=== PATIENT | male | born 1935 | race African-American/Black ===

== ENCOUNTER 2021-12-07 12:03 | Inpatient (IN) | payer MEDICARE, OTHER ==
[~2021-12-07] VITALS: Ht 167.6 cm; Wt 56.7 kg
--- NOTE | 2021-12-07 12:22 | NUR ---
PT SOULEYMANE MATUTE FROM [facility], PER EMS REPORT, BEEN HAVING DIARRHEA FOR MONTHS AND HAVING CONCERN WELL WITH POSSIBLE GI BLEED. PT IS CONFUSED RANGER AIDE. STABLE VITALS. NO ACTIVE DIARRHEA NOTED RANGER AIDE. AWAITING MD JENSEN.
--- NOTE | 2021-12-07 12:48 | NUR ---
DR MURO AT BEDSIDE FOR EVAL.
--- NOTE | 2021-12-07 12:50 | NUR ---
PT TO RADIOLOGY FOR ABDOMINAL CT SCAN VIA [facility].
--- NOTE | 2021-12-07 12:54 | NUR ---
SWAB FOR COVID19 SENT TO LAB
[2021-12-07] MEDS ORDERED: MEMA28CA5 PO (13:23)
[2021-12-07] MEDS ORDERED: CARV6.252 PO (13:23)
[2021-12-07] MEDS ORDERED: PANT40TA2 PO (13:23)
[2021-12-07] MEDS ORDERED: ASPI-1169 PO (13:23)
[2021-12-07] MEDS ORDERED: LISI40TA13 PO (13:23)
[2021-12-07] MEDS ORDERED: TAMS-12 PO (13:23)
[2021-12-07] MEDS ORDERED: METF-440 PO (13:23)
[2021-12-07] MEDS ORDERED: ATOR10TA PO (13:23)
[2021-12-07] MEDS ORDERED: AMLO-213 PO (13:23)
[2021-12-07] MEDS ORDERED: CHOL100043 PO (13:23)
[2021-12-07] MEDS ORDERED: DIPH1TAB PO (13:23)
[2021-12-07] MEDS ORDERED: FERR325T23 PO (13:23)
[2021-12-07] MEDS ORDERED: ASCO-340 PO (13:23)
[2021-12-07] MEDS ORDERED: HYDR-4076 PO (13:23)
[2021-12-07] MEDS ORDERED: DONE10TA44 PO (13:23)
[2021-12-07] MEDS ORDERED: LACT10SO3 PO (13:23)
[2021-12-07 13:45] LABS: BASOPHILS % (AUTO) 0.3 % (0.0-2.0); EOSINOPHILS % (AUTO) 2.7 % (0.0-6.0); HEMATOCRIT 28 % (39-51); HEMOGLOBIN 8.5 g/dL (13.5-17.5); LYMPHOCYTES # (AUTO) 1.6 K/uL (0.8-4.8); LYMPHOCYTES % (AUTO) 17.5 % (20.0-44.0); MEAN CORPUSCULAR HGB CONC 31 g/dl (31.0-36.0); MEAN CORPUSCULAR VOLUME 74 fL (80-96); MONOCYTES # (AUTO) 0.6 K/uL (0.1-1.30); MONOCYTES % (AUTO) 6.7 % (2.0-12.0); NEUTROPHILS # (AUTO) 6.7 K/uL (1.8-8.9); NEUTROPHILS % (AUTO) 72.8 % (43.0-81.0); PLATELET COUNT (AUTO) 267 K/uL (150-450); RED BLOOD CELL COUNT(AUTO) 3.72 MIL/uL (4.5-6.0); WHITE BLOOD COUNT (AUTO) 9.2 K/uL (4.3-11.0)
[2021-12-07 13:55] LABS: ALBUMIN 2.6 g/dL (3.4-5.0); BILIRUBIN,TOTAL 0.2 mg/dL (0.2-1.0); CALCIUM, SERUM 9.3 mg/dL (8.5-10.1); CREATININE 0.8 mg/dL (0.6-1.3); POTASSIUM 4.1 mmol/L (3.5-5.1); TOTAL PROTEIN, SERUM 7.1 g/dL (6.4-8.2)
[2021-12-07 14:11] LABS: BILIRUBIN,DIRECT 0.1 mg/dL (0.0-0.2)
--- NOTE | 2021-12-07 18:23 | NUR ---
BED GIVEN 120-1
--- NOTE | 2021-12-07 18:27 | NUR ---
REPORT GIVEN TO NURSE ALVAREZ FOR JOHN
[2021-12-07] MEDS ORDERED: ACETAMINOPHEN 325 MG TABLET PO PRN (19:00)
[2021-12-07] MEDS ORDERED: ONDANSETRON HCL/PF 4 MG/2 ML VIAL IVP PRN (19:00)
[2021-12-07] MEDS ORDERED: DEXTROSE 50%-WATER 50 ML DISP.SYRIN IV PRN (19:30)
--- NOTE | 2021-12-07 19:30 | NUR ---
RN NOTE RECEIVED PATIENT IN BED, CONFUSED, IN NO ACUTE DISTRESS, BREATHING EVEN AND UNLABORED, SATURATION AT 98% ON ROOM AIR, HR IS 90. IV LINE AT RFA 20G PATENT AND FLUSHING WELL, NO S/S OF INFECTION OR INFILTRATION, STARTED IV FLUID OF NS AT 75 ML/HR. COMPREHENSIVE ASSESSMENT DONE, NOTED UNSTAGEABLE SACRAL ULCER, AND WOUND AT L HEEL AND R FOOT. PATIENT BED ALARM IS ON. HEAD OF BED ELEVATED. BED IS LOCKED, IN LOWEST POSITION AND SIDE RAILS UP. CALL LIGHT WITHIN REACH OF THE PATIENT. WILL CONTINUE TO MONITOR AND REASSESS FOR ANY CHANGES.
[2021-12-07 20:00] VITALS: BP 142/81
[2021-12-07] MEDS: IV NS 0.9% 1,000 ML IV PRN (20:40)
[2021-12-07] MEDS: PANTOPRAZOLE 40 MG VIAL IV SCH (21:08)
[2021-12-07] MEDS: CIPROFLOXACIN IV RTU 400 MG in PREMIX 1 EA IV SCH (21:43)
[2021-12-07] MEDS: METRONIDAZOLE 500MG/ NS 100ML 500 MG in PREMIX 1 EA IV SCH (21:56)
[2021-12-08] MEDS: BLOOD SUGAR DIAGNOSTIC 1 EACH STRIP IN SCH ×5 (00:27→23:52)
[2021-12-08] MEDS: METRONIDAZOLE 500MG/ NS 100ML 500 MG in PREMIX 1 EA IV SCH ×3 (05:33→20:30)
[2021-12-08 06:00] VITALS: BP 157/72
[2021-12-08 07:24] LABS: BASOPHILS % (AUTO) 0.3 % (0.0-2.0); EOSINOPHILS % (AUTO) 1.8 % (0.0-6.0); HEMATOCRIT 27 % (39-51); HEMOGLOBIN 8.3 g/dL (13.5-17.5); LYMPHOCYTES # (AUTO) 1.5 K/uL (0.8-4.8); LYMPHOCYTES % (AUTO) 16.3 % (20.0-44.0); MEAN CORPUSCULAR HGB CONC 31 g/dl (31.0-36.0); MEAN CORPUSCULAR VOLUME 74 fL (80-96); MONOCYTES # (AUTO) 0.8 K/uL (0.1-1.30); MONOCYTES % (AUTO) 9.4 % (2.0-12.0); NEUTROPHILS # (AUTO) 6.5 K/uL (1.8-8.9); NEUTROPHILS % (AUTO) 72.2 % (43.0-81.0); PLATELET COUNT (AUTO) 234 K/uL (150-450); RED BLOOD CELL COUNT(AUTO) 3.58 MIL/uL (4.5-6.0)
[2021-12-08 07:29] LABS: CALCIUM, SERUM 8.6 mg/dL (8.5-10.1); CARBON DIOXIDE 29 mmol/L (21-32); CHLORIDE 103 mmol/L (98-107); CREATININE 0.8 mg/dL (0.6-1.3); GLUCOSE 106 mg/dL (74-106); MAGNESIUM 1.5 mg/dL (1.8-2.4); PHOSPHORUS 3.1 mg/dL (2.5-4.9); POTASSIUM 3.6 mmol/L (3.5-5.1); SODIUM SERUM 137 mmol/L (136-145); UREA NITROGEN, BLOOD 16 mg/dL (7-18)
--- NOTE | 2021-12-08 07:30 | NUR ---
RN OPENING NOTE PATIENT IS IN BED, ASLEEP BUT EASILY AROUSABLE. ALERT ORIENTED X 1. ON ROOM AIR , BREATHING UNLABORED AND NOT IN ANY FORM OF DISTRESS. ON NPO. RIGHT FOREARM IV INTACT AND INFUSING WITH NS AT 75 ML/HR. RIGHT HAND IV LOCK INTACT AND PATENT. BED IS LOCKED IN LOWEST POSITION, 3 SIDE RAILS UP, CALL LIGHT WITHIN REACH. WILL CONTINUE TO MONITOR.
[2021-12-08 07:47] LABS: IRON, SERUM 15 ug/dl (50-175); TOTAL IRON BINDING CAPACITY 133 ug/dl (250-450)
[2021-12-08 07:50] LABS: CHOLESTEROL 116 mg/dL (<200); HDL CHOLESTEROL 39 mg/dL (40-60); LDL 65 mg/dL (0-99); TRIGLYCERIDES 87 mg/dL (30-150)
[2021-12-08 08:00] VITALS: BP 160/65
[2021-12-08] MEDS: PANTOPRAZOLE 40 MG VIAL IV SCH (09:55)
[2021-12-08] MEDS: CIPROFLOXACIN IV RTU 400 MG in PREMIX 1 EA IV SCH ×2 (09:55→20:30)
[2021-12-08] MEDS ORDERED: PANTOPRAZOLE 40 MG TABLET.DR PO SCH (12:00)
[2021-12-08] MEDS: hydrALAZINE HCL 25 MG TABLET PO SCH ×2 (12:08→17:34)
[2021-12-08] MEDS: Magnesium 1GM/D5W 100ML PREMIX 100 ML IV SCH ×2 (12:14→14:26)
[2021-12-08] MEDS: CHOLECALCIFEROL (VITAMIN D 3) 400 UNIT TABLET PO SCH (12:14)
[2021-12-08] MEDS: AMLODIPINE BESYLATE 10 MG TABLET PO SCH (12:15)
[2021-12-08] MEDS: ATORVASTATIN 10 MG TABLET PO SCH (12:15)
[2021-12-08] MEDS: TAMSULOSIN 0.4 MG CAP.SR.24H PO SCH (12:15)
[2021-12-08] MEDS: CARVEDILOL 6.25 MG TABLET PO SCH ×2 (12:15→17:33)
[2021-12-08] MEDS: ASCORBIC ACID 500 MG TABLET PO SCH (12:15)
[2021-12-08] MEDS: ASPIRIN 81 MG TAB.CHEW PO SCH (12:16)
[2021-12-08] MEDS: DONEPEZIL 5 MG TABLET PO SCH (12:16)
[2021-12-08] MEDS: LISINOPRIL (20MG) 20 MG TABLET PO SCH (12:16)
[2021-12-08] MEDS: MEMANTINE HCL 5 MG TABLET PO SCH ×2 (12:16→17:33)
[2021-12-08] MEDS: IV NS 0.9% 1,000 ML IV PRN (12:21)
[2021-12-08 16:00] VITALS: BP 149/64
[2021-12-08] MEDS: SOD FERRIC GLUC 125 MG in IV NS 0.9% 100 ML IV SCH (16:05)
--- NOTE | 2021-12-08 19:00 | NUR ---
RN NOTE RECEIVED PATIENT IN BED, ON SEMI HAILE'S, CONFUSED, IN NO ACUTE DISTRESS, BREATHING EVEN AND UNLABORED, SATURATION AT 100 ON 2L VIA NC, HR IS 76. IV LINE AT RFA 20G AND L HAND 20G PATENT AND FLUSHING WELL, NO S/S OF INFECTION OR INFILTRATION, NS INFUSING AT 75 ML/HR. SAFETY MEASURES IN PLACE. PATIENT BED ALARM IS ON. HEAD OF BED ELEVATED. BED IS LOCKED, IN LOWEST POSITION AND SIDE RAILS UP. CALL LIGHT WITHIN REACH OF THE PATIENT. WILL CONTINUE TO MONITOR AND REASSESS FOR ANY CHANGES.
--- NOTE | 2021-12-08 19:00 | NUR ---
RN CLOSING NOTE PATIENT REMAINED STABLE THROUGHOUT SHIFT. BREATHING UNLABORED AND NOT IN ANY FORM OF DISTRESS. ABLE TO TOLERATE CLEAR LIQUID DIET. IV LINE INTACT AND PATENT. NOW WITH CONDOM CATHETER. ALL NEEDS ATTENDED. ALL HOSPITAL SAFETY PRECAUTIONS IN PLACE. WILL ENDORSE TO PROCESS ENGINEERING MANAGER NURSE.
[2021-12-08 20:00] VITALS: BP 134/63
--- NOTE | 2021-12-08 20:54 | NUR ---
RN NOTE TELEPHONE CALL TO [facility] AT [phone] TO VERIFY CODE STATUS FACE SHEET FROM FACILITY SHOWS DNR. SPOKE WITH CAREGIVER AND WAS TOLD TO CALL [facility] STRAIGHTENER [facility] AT [phone]. TELEPHONE CALL TO [phone], SPOKE WITH [facility] STATED PT DOES NOT HAVE A SIGNED POLST BUT HAS AN ADVANCED DIRECTIVE, SHE SAID SHE WILL FAX IT OVER WHEN SHE GOES TO THE FACILITY IN AM, OR BRING IT WHEN SHE IS ABLE TO COME TO THE HOSPITAL. PROVIDED WITH FAX NUMBER. TOLD HER PATIENT WILL BE TRANSFERRED TO ROOM 327-1. .
--- NOTE | 2021-12-08 22:25 | NUR ---
RN NOTE PT TRANSFERRED TO 327-1 VIA BLS PROTOCOL, VS STABLE. REPORT GIVEN TO MATHEW AUGUSTIN FOR JOHN
[2021-12-08] MEDS ORDERED: DOXYCYCLINE 100 MG VIAL ONE (22:39)
--- NOTE | 2021-12-08 23:23 | NUR ---
MS RN NOTE PATIENT TRANSFERRED IN UNIT AT AROUND 2225, ACCOMPANIED BY 2 JONATHON RN'S. NO S/S OF APPARENT DISTRESS IN 4LPM OF O2 VIA NC. NOT EXHIBITING VIA FLACC. PATIENT NON-VERBAL BUT OPENS EYE. IV CIPRO AND IV FLAGYL RUNNING STILL AT THIS TIME. ID BAND WITH PATIENT. BELONGINGS CHECKED AND INVENTORIED. HAS 2 IV ACCESS ONE ON R.FA #20G AND ONE ON L.HAND #20G. CONDOM CATH DRAINING CLEAR YELLOW URINE. MULTIPLE WOUNDS NOTED. SAFETY IN PLACE. WILL CONTINUE WITH PATIENT CARE PLAN.
[2021-12-08] MEDS: DOXYCYCLINE 100 MG in IV D5W 100 ML IV SCH (23:51)
[2021-12-08] MEDS: INSULIN REGULAR, HUMAN 100 UNIT/ML 3 ML VIAL SQ PRN (23:52)
[2021-12-09] MEDS: METRONIDAZOLE 500MG/ NS 100ML 500 MG in PREMIX 1 EA IV SCH (05:00)
[2021-12-09] MEDS: BLOOD SUGAR DIAGNOSTIC 1 EACH STRIP IN SCH ×3 (06:00→17:37)
[2021-12-09 08:00] VITALS: BP 141/67
--- NOTE | 2021-12-09 08:10 | NUR ---
MS RN RECEIVED ON BED, AWAKE, ORIENTED X1, ROOM AIR,NOT IN ANY FORM OF DISTRESS, RESPIRATIONS EVEN AND UNLABORED,NO SOB NOTED, WILL MONITOR PATIENT.
--- NOTE | 2021-12-09 09:30 | NUR ---
MS RN ON CLEAR LIQUID DIET, TOLERATED WELL W/ MEDS,ALL NEEDS ATTENDED.
[2021-12-09] MEDS: CHOLECALCIFEROL (VITAMIN D 3) 400 UNIT TABLET PO SCH (10:58)
[2021-12-09] MEDS: ASPIRIN 81 MG TAB.CHEW PO SCH (10:58)
[2021-12-09] MEDS: DONEPEZIL 5 MG TABLET PO SCH (10:58)
[2021-12-09] MEDS: ATORVASTATIN 10 MG TABLET PO SCH (10:58)
[2021-12-09] MEDS: TAMSULOSIN 0.4 MG CAP.SR.24H PO SCH (10:59)
[2021-12-09] MEDS: MEMANTINE HCL 5 MG TABLET PO SCH ×2 (10:59→17:09)
[2021-12-09] MEDS: LISINOPRIL (20MG) 20 MG TABLET PO SCH (10:59)
[2021-12-09] MEDS: CARVEDILOL 6.25 MG TABLET PO SCH ×2 (11:00→17:10)
[2021-12-09] MEDS: AMLODIPINE BESYLATE 10 MG TABLET PO SCH (11:00)
--- NOTE | 2021-12-09 11:00 | NUR ---
MS AUGUSTIN WAS SEEN BY MD Rose/ ORDERS MADE AND CARRIED OUT.
[2021-12-09] MEDS: hydrALAZINE HCL 25 MG TABLET PO SCH ×3 (11:01→17:09)
[2021-12-09] MEDS: ASCORBIC ACID 500 MG TABLET PO SCH (11:01)
[2021-12-09] MEDS: PANTOPRAZOLE 40 MG VIAL IV SCH (11:11)
[2021-12-09] MEDS: DOXYCYCLINE 100 MG in IV D5W 100 ML IV SCH ×2 (11:11→21:14)
[2021-12-09] MEDS ORDERED: METR500T PO (11:14)
[2021-12-09] MEDS ORDERED: CIPR-262 PO (11:14)
[2021-12-09] MEDS ORDERED: SOD62.5V IV (11:14)
[2021-12-09 11:24] LABS: BASOPHILS % (AUTO) 0.5 % (0.0-2.0); EOSINOPHILS % (AUTO) 1.8 % (0.0-6.0); HEMATOCRIT 25 % (39-51); HEMOGLOBIN 7.8 g/dL (13.5-17.5); LYMPHOCYTES # (AUTO) 1.4 K/uL (0.8-4.8); LYMPHOCYTES % (AUTO) 16.6 % (20.0-44.0); MEAN CORPUSCULAR HGB CONC 32 g/dl (31.0-36.0); MEAN CORPUSCULAR VOLUME 73 fL (80-96); MONOCYTES # (AUTO) 0.9 K/uL (0.1-1.30); MONOCYTES % (AUTO) 10.9 % (2.0-12.0); NEUTROPHILS # (AUTO) 5.9 K/uL (1.8-8.9); NEUTROPHILS % (AUTO) 70.2 % (43.0-81.0); PLATELET COUNT (AUTO) 237 K/uL (150-450); RED BLOOD CELL COUNT(AUTO) 3.37 MIL/uL (4.5-6.0); WHITE BLOOD COUNT (AUTO) 8.4 K/uL (4.3-11.0)
[2021-12-09 11:58] LABS: CALCIUM, SERUM 8.3 mg/dL (8.5-10.1); CREATININE 0.7 mg/dL (0.6-1.3); POTASSIUM 3.2 mmol/L (3.5-5.1)
[2021-12-09] MEDS: INSULIN REGULAR, HUMAN 100 UNIT/ML 3 ML VIAL SQ PRN (12:38)
[2021-12-09] MEDS: METRONIDAZOLE 500 MG TABLET PO SCH ×2 (14:05→21:12)
[2021-12-09] MEDS: SOD FERRIC GLUC 125 MG in IV NS 0.9% 100 ML IV SCH (14:21)
[2021-12-09] MEDS: IV NS 0.9% 1,000 ML IV PRN (14:30)
[2021-12-09] MEDS: POTASSIUM CHLORIDE 20 MEQ TAB.PRT.SR PO SCH ×2 (15:47→16:42)
--- NOTE | 2021-12-09 17:00 | NUR ---
MS RN ON BED,NO DISTRESS NOTED.
--- NOTE | 2021-12-09 17:49 | NUR ---
MS AUGUSTIN BS- 121, NO COVERAGE PER PROTOCOL.
--- NOTE | 2021-12-09 18:31 | NUR ---
MS RN ON BED, NO DISTRESS NOTED. WILL ENDORSE TO SEED PRODUCTION FIELD SUPERVISOR FOR JOHN.
--- NOTE | 2021-12-09 19:30 | NUR ---
MS/RN OPENING NOTE RECEIVED PATIENT RESTING IN BED. ALERT AND ORIENTED TO NAME. DENIES PAIN AT THIS TIME. CONTINUES ON O2 2L VIA NC WITH NO S/SX OF RESPIRATORY DISTRESS NOTED. IV ACCESS TO RIGHT FOREARM #20G AND LEFT HAND #20G BOTH INTACT AND PATENT. CONTINUES ON IVF NS @ 75ML/HR. CONTINUES ON IV AND PO ABX. CONTINUES ON FULL LIQUID DIET WITH NO S/SX OF NAUSEA OR VOMITING NOTED. CALL LIGHT WITHIN REACH. ASPIRATION, FALL AND SAFETY PRECAUTIONS MAINTAINED. ALL NEEDS ATTENDED TO AT THIS TIME.
[2021-12-09 20:00] VITALS: BP 135/53
[2021-12-09] MEDS: CIPROFLOXACIN HCL 250 MG TABLET PO SCH (21:12)
[2021-12-10] MEDS: BLOOD SUGAR DIAGNOSTIC 1 EACH STRIP IN SCH ×3 (00:28→12:14)
[2021-12-10] MEDS: METRONIDAZOLE 500 MG TABLET PO SCH ×2 (05:45→14:03)
--- NOTE | 2021-12-10 06:20 | NUR ---
MS/RN CLOSING NOTE PATIENT CURRENTLY RESTING IN BED. AWAKE, ALERT AND ORIENTED TO NAME. DENIES PAIN AT THIS TIME. CONTINUES ON O2 2L VIA NC WITH NO S/SX OF RESPIRATORY DISTRESS NOTED. IV ACCESS TO RIGHT FOREARM #20G AND LEFT HAND #20G BOTH INTACT AND PATENT. CONTINUES ON IVF NS @ 75ML/HR. CONTINUES ON IV AND PO ABX. CONTINUES ON FULL LIQUID DIET WITH NO S/SX OF NAUSEA OR VOMITING NOTED. CONTINUES WITH CONDOM CATH DRAINING 1,000CC OF YELLOW URINE THIS SHIFT. CALL LIGHT WITHIN REACH. ASPIRATION, FALL AND SAFETY PRECAUTIONS MAINTAINED. WILL ENDORSE PLAN OF CARE TO ONCOMING SHIFT RN.
[2021-12-10 07:07] LABS: CALCIUM, SERUM 8.2 mg/dL (8.5-10.1); CREATININE 0.6 mg/dL (0.6-1.3); POTASSIUM 3.5 mmol/L (3.5-5.1)
[2021-12-10] MEDS: PANTOPRAZOLE 40 MG TABLET.DR PO SCH ×2 (08:01→09:13)
--- NOTE | 2021-12-10 08:51 | NUR ---
SS consult requested for patient is from [facility] with Stage 4 pressure Sore. SW will follow up at a later time.
[2021-12-10] MEDS ORDERED: DAKINS QUARTER STRENGTH (0.125%) 480 ML BOTTLE TOP SCH (09:00)
[2021-12-10] MEDS ORDERED: Z GUARD REMEDY 4 OZ OINT TP SCH (09:00)
[2021-12-10] MEDS ORDERED: FERROUS SULFATE (325 MG) 325 MG/TAB TABLET PO SCH (09:00)
[2021-12-10] MEDS ORDERED: Z GUARD REMEDY 4 OZ OINT TP PRN (09:00)
[2021-12-10] MEDS: TAMSULOSIN 0.4 MG CAP.SR.24H PO SCH (09:12)
[2021-12-10] MEDS: DOXYCYCLINE 100 MG in IV D5W 100 ML IV SCH (09:12)
[2021-12-10] MEDS: DONEPEZIL 5 MG TABLET PO SCH (09:12)
[2021-12-10] MEDS: MEMANTINE HCL 5 MG TABLET PO SCH (09:13)
[2021-12-10] MEDS: CARVEDILOL 6.25 MG TABLET PO SCH (09:13)
[2021-12-10] MEDS: CHOLECALCIFEROL (VITAMIN D 3) 400 UNIT TABLET PO SCH (09:14)
[2021-12-10] MEDS: ASPIRIN 81 MG TAB.CHEW PO SCH (09:14)
[2021-12-10] MEDS: ATORVASTATIN 10 MG TABLET PO SCH (09:14)
[2021-12-10] MEDS: ASCORBIC ACID 500 MG TABLET PO SCH (09:14)
[2021-12-10] MEDS: AMLODIPINE BESYLATE 10 MG TABLET PO SCH (09:14)
[2021-12-10] MEDS: hydrALAZINE HCL 25 MG TABLET PO SCH ×2 (09:15→13:00)
[2021-12-10] MEDS: LISINOPRIL (20MG) 20 MG TABLET PO SCH (09:15)
[2021-12-10] MEDS: CIPROFLOXACIN HCL 250 MG TABLET PO SCH (09:28)
[2021-12-10 09:48] VITALS: BP 126/68
--- NOTE | 2021-12-10 09:53 | NUR ---
MS RN, Opening note Pt is awake, alert in bed. On NC 2L. IV Infusing, morning meds given. Pt complains of pain on sacrum when moved. Pillows under Pt to offset pressure. Wound consult came and assessed, staged sacral wound as a stage 4. Open wound on left ankle. Wound care plan created. student services coordinator called and notified.
[2021-12-10] MEDS: INSULIN REGULAR, HUMAN 100 UNIT/ML 3 ML VIAL SQ PRN (12:20)
[2021-12-10] MEDS: SOD FERRIC GLUC 125 MG in IV NS 0.9% 100 ML IV SCH (12:38)
[2021-12-10 13:00] VITALS: BP 110/47
--- NOTE | 2021-12-10 13:00 | NUR ---
Pt awake, alert in bed. Sacral wound cleaned and redressed. No pain reported at this time.
--- NOTE | 2021-12-10 14:53 | NUR ---
MS RN, CLOSING NOTE PT AWAKE AND ALERT BEING DISCHARGED TO [facility], BEING TRANSPORTED BY AMBULANCE. IV DISCONNECTED. DISCHARGE TEACHING AND DOCUMENTS GIVEN TO TRANSPORT. MEDICATION PRESCRIPTION GIVEN TO TRANSPORT. REPORT GIVEN TO TRANSPORT. PT TRANSFERRED.
--- NOTE | 2021-12-10 15:05 | NUR ---
Bar Tender consult requested for pt. from [facility] with stage 4 pressure sore. Upon SS consult, pt. is alert and oriented x1. Pt. was not able to be interviewed at this time. personal financial planner consulted with GERALD Dodson regarding fredman report. personal financial planner will follow up as needed.
== END 2021-12-10 15:00 | DRG 391 ==
LOC: ER 12:05 → TELE1 20:22 → MEDSG1 22:25 → MED 12-08 22:21
PROVIDERS: ADMIT Nurse Practitioner Acute Care; ATTEND Nurse Practitioner Acute Care
DX: A09 Infectious gastroenteritis and colitis, unspecified (principal); L89.154 Pressure ulcer of sacral region, stage 4; N17.9 Acute kidney failure, unspecified; E44.0 Moderate protein-calorie malnutrition; K56.7 Ileus, unspecified; E86.0 Dehydration; F03.90 Unspecified dementia, unspecified severity, without behavioral disturbance, psychotic disturbance, mood disturbance, and anxiety; K21.9 Gastro-esophageal reflux disease without esophagitis; I25.10 Atherosclerotic heart disease of native coronary artery without angina pectoris; Z20.822 Contact with and (suspected) exposure to COVID-19; I10 Essential (primary) hypertension; E11.9 Type 2 diabetes mellitus without complications; Z88.0 Allergy status to penicillin; Z79.84 Long term (current) use of oral hypoglycemic drugs; Z79.82 Long term (current) use of aspirin; Z79.899 Other long term (current) drug therapy; D50.9 Iron deficiency anemia, unspecified; E88.09 Other disorders of plasma-protein metabolism, not elsewhere classified; L89.626 Pressure-induced deep tissue damage of left heel; L89.616 Pressure-induced deep tissue damage of right heel; L89.526 Pressure-induced deep tissue damage of left ankle
CPT/HCPCS: 36415; 80048-TC; 80061-TC; 80076-TC; 82728-TC; 82962-TC; 83540-TC; 83690-TC; 83735-TC; 84100-TC; 85025-TC; 85730-TC; 87081-TC; A4216; A4349; A6253; A6403; C9113; C9803; G0378; J0744; J1815; J2916; J3475; J3490; J7030; J7040; J7050; J7060

== ENCOUNTER 2022-01-03 17:03 | Inpatient (IN) | payer MEDICARE, OTHER ==
[~2022-01-03] VITALS: Ht 167.6 cm; Wt 53.5 kg
[~2022-01-03 17:03] MED LIST: AMLO-213 PO; ASCO-340 PO; ASPI-1169 PO; ATOR10TA PO; CARV6.252 PO; CHOL100043 PO; CIPR-262 PO; DIPH1TAB PO; DONE10TA44 PO; FERR325T23 PO; HYDR-4076 PO; LACT10SO3 PO; LISI40TA13 PO; MEMA28CA5 PO; METF-440 PO; METR500T PO; PANT40TA2 PO; SOD62.5V IV; TAMS-12 PO
--- NOTE | 2022-01-03 17:16 | NUR ---
[id number] from board and care, sob while eating, 74% on room air, 94% on NRB. PLACED ON BED, NOT RESPONDING TO VERBAL STIMULI- RESPONDING TO PAINFUL STIMULI, SATURATING AT 98% WITH 15LIT 02 VIA NRM.
[2022-01-03] MEDS ORDERED: ZINC50TA69 PO (17:26)
[2022-01-03] MEDS ORDERED: MULT-1201 PO (17:26)
--- NOTE | 2022-01-03 18:00 | NUR ---
BLOOD DRAWN AND SENT TO LAB
[2022-01-03 18:11] LABS: BASOPHILS % (AUTO) 0.2 % (0.0-2.0); HEMATOCRIT 24 % (39-51); HEMOGLOBIN 7.5 g/dL (13.5-17.5); LYMPHOCYTES # (AUTO) 0.5 K/uL (0.8-4.8); MEAN CORPUSCULAR HGB CONC 31 g/dl (31.0-36.0); MEAN CORPUSCULAR VOLUME 73 fL (80-96); MONOCYTES # (AUTO) 0.6 K/uL (0.1-1.30); MONOCYTES % (AUTO) 5.9 % (2.0-12.0); NEUTROPHILS # (AUTO) 9.2 K/uL (1.8-8.9); NEUTROPHILS % (AUTO) 88.9 % (43.0-81.0); PLATELET COUNT (AUTO) 396 K/uL (150-450); RED BLOOD CELL COUNT(AUTO) 3.32 MIL/uL (4.5-6.0); WHITE BLOOD COUNT (AUTO) 10.4 K/uL (4.3-11.0)
[2022-01-03 18:36] LABS: CALCIUM, SERUM 9.5 mg/dL (8.5-10.1); CARBON DIOXIDE 30 mmol/L (21-32); CHLORIDE 104 mmol/L (98-107); CREATININE 1.1 mg/dL (0.6-1.3); POTASSIUM 4.1 mmol/L (3.5-5.1); SODIUM SERUM 144 mmol/L (136-145); UREA NITROGEN, BLOOD 34 mg/dL (7-18)
--- NOTE | 2022-01-03 18:39 | NUR ---
SWAB FOR COVID19 AND URINE SAMPLE SENT TO LAB
[2022-01-03 18:40] LABS: GLUCOSE 356 mg/dL (74-106)
[2022-01-03 18:42] LABS: BAND % (MANUAL) 16 % (0.0-5.0); LYMPHOCYTES % (MANUAL) 6 % (16-48); MONOCYTES % (MANUAL) 1 % (0-11.0); NEUTROPHILS % (MANUAL) 77 (42-76)
[2022-01-03 18:43] LABS: ALANINE AMINOTRANSFERASE 13 U/L (12-78); ALBUMIN 2.1 g/dL (3.4-5.0); ALKALINE PHOSPHATASE 61 U/L (46-116); ASPARTATE AMINOTRANSFERASE 13 U/L (15-37); BILIRUBIN,DIRECT 0.1 mg/dL (0.0-0.2); BILIRUBIN,TOTAL 0.2 mg/dL (0.2-1.0); TOTAL PROTEIN, SERUM 7.6 g/dL (6.4-8.2)
[2022-01-03 18:50] LABS: BILIRUBIN,URINE NEGATIVE (NEGATIVE); COLOR,URINE YELLOW (YELLOW); LEUKOCYTE ESTERASE ,URINE NEGATIVE (NEGATIVE); NITRITE, URINE NEGATIVE (NEGATIVE); PH,URINE 5.5 (5.0-8.0); PROTEIN,URINE 100 mg/dl (NEGATIVE); UGLUCOSE 100 MG/DL mg/dL (NEGATIVE); UROBILINOGEN,URINE 0.2 EU/dL (0.2)
[2022-01-03] MEDS ORDERED: IV NS 0.9% 1,000 ML BAG IV ONE ×2 (19:00→19:30)
[2022-01-03] MEDS ORDERED: VANCOMYCIN 1 GM in IV D5W 250 ML IV ONE (19:30)
[2022-01-03] MEDS ORDERED: MEROPENEM 1 G VIAL IV ONE (19:30)
[2022-01-03] MEDS ORDERED: MEROPENEM 1 G in IV NS 0.9% 100 ML IV ONE (19:30)
[2022-01-03] MEDS ORDERED: VANCOMYCIN 1 GM VIAL ONE (19:30)
--- NOTE | 2022-01-03 19:43 | NUR ---
[facility] CALLED DIRECTOR OF NEUROLOGY PAGED.
[2022-01-03 19:50] LABS: BACTERIA,URINE None seen /HPF (None Seen); URINE AMORPHOUS URATE Few /HPF (None Seen); WBC,URINE 0-2 /HPF (0-3)
[2022-01-03 19:51] LABS: SQUAMOUS EPITHELIAL CELL,UR 0-2 /HPF (None Seen)
--- NOTE | 2022-01-03 20:51 | NUR ---
ROOM 112-1
[2022-01-03] MEDS ORDERED: DEXTROSE 50%-WATER 50 ML DISP.SYRIN IV PRN ×2 (21:30→23:30)
[2022-01-03] MEDS ORDERED: ACETAMINOPHEN 325 MG TABLET PO PRN (21:30)
[2022-01-03] MEDS ORDERED: IV NS 0.9% 1,000 ML IV PRN (21:30)
[2022-01-03] MEDS ORDERED: Z GUARD REMEDY 4 OZ OINT TP PRN (21:30)
[2022-01-03] MEDS ORDERED: INSULIN REGULAR, HUMAN 100 UNIT/ML 3 ML VIAL SQ PRN (21:30)
[2022-01-03] MEDS ORDERED: ONDANSETRON HCL/PF 4 MG/2 ML VIAL IVP PRN (21:30)
--- NOTE | 2022-01-03 21:51 | NUR ---
REPORT GIVEN TO JONATHON RN FOR JOHN
--- NOTE | 2022-01-03 21:55 | NUR ---
LACTIC ACID 3.1
[2022-01-03] MEDS ORDERED: BLOOD SUGAR DIAGNOSTIC 1 EACH STRIP IN SCH (22:00)
--- NOTE | 2022-01-03 22:07 | NUR ---
TRANSFERRED PT TO 112
--- NOTE | 2022-01-03 22:10 | NUR ---
ADMISSION RN NOTES, RECEIVED 86 YEAR OLD MALE ADMITTED FROM ER DEPARTMENT VIA STRETCHER ACCOMPANIED BY 2NURSES, UNDER MEDICAL SERVICES OF KOREY TRAVIS NP, WITH ADMITTING DX SEPSIS, NO SOB/ACUTE DISTRESS NOTED ON 8L SIMPLE MASK, WITH O2 SAT LEVEL, 95%, WHEN ATTACH TO TELE MONITOR AND SHOWS NSR -SINUS TACHY, IV IN LEFT HAND PATENT AND INTACT, NO S/S OF INFILTRATION, NOTED WITH SACRAL WOUND AND BILATERAL HEELS WOUNDS, WOUND CONSULT EVALUATION TO FOLLOW, AFEBRILE, WILL CONTINUE TO MONITOR CLOSELY.
[2022-01-03 22:20] VITALS: BP 146/64
[2022-01-03] MEDS: ENOXAPARIN SODIUM 40 MG/0.4 ML DISP.SYRIN SQ SCH (23:18)
[2022-01-03] MEDS: BLOOD SUGAR DIAGNOSTIC 1 EACH STRIP IN SCH (23:38)
[2022-01-03] MEDS: MEMANTINE HCL 5 MG TABLET PO SCH (23:40)
[2022-01-03] MEDS: CARVEDILOL 6.25 MG TABLET PO SCH (23:40)
[2022-01-03] MEDS: DONEPEZIL 5 MG TABLET PO SCH (23:40)
[2022-01-03] MEDS: hydrALAZINE HCL 25 MG TABLET PO SCH (23:40)
[2022-01-03] MEDS: INSULIN REGULAR, HUMAN 100 UNIT/ML 3 ML VIAL SQ PRN (23:42)
--- NOTE | 2022-01-03 23:50 | NUR ---
ALL PO MEDS HELD PATIENT NPO STATUS, TOMORROW WILL HAVE SWALLOW EVAL.
[2022-01-04] VITALS: BP 147/71
[2022-01-04] MEDS: ACETYLCYSTEINE 10% SOLN 400 MG/4 ML VIAL NEB SCH ×4 (00:05→23:30)
[2022-01-04 04:00] VITALS: BP 125/58
[2022-01-04] MEDS ORDERED: MEROPENEM 500 MG in IV NS 0.9% 50 ML IV SCH ×2 (05:00→13:00)
[2022-01-04] MEDS ORDERED: MEROPENEM 500 MG VIAL IV ONE (05:15)
[2022-01-04] MEDS: BLOOD SUGAR DIAGNOSTIC 1 EACH STRIP IN SCH ×3 (06:04→17:50)
[2022-01-04] MEDS: INSULIN REGULAR, HUMAN 100 UNIT/ML 3 ML VIAL SQ PRN ×3 (06:04→17:53)
[2022-01-04 06:15] LABS: HEMATOCRIT 24 % (39-51); HEMOGLOBIN 7.5 g/dL (13.5-17.5); LYMPHOCYTES # (AUTO) 0.6 K/uL (0.8-4.8); LYMPHOCYTES % (AUTO) 8.4 % (20.0-44.0); MEAN CORPUSCULAR HGB CONC 31 g/dl (31.0-36.0); MEAN CORPUSCULAR VOLUME 74 fL (80-96); MONOCYTES # (AUTO) 0.4 K/uL (0.1-1.30); MONOCYTES % (AUTO) 4.9 % (2.0-12.0); NEUTROPHILS # (AUTO) 6.7 K/uL (1.8-8.9); NEUTROPHILS % (AUTO) 86.7 % (43.0-81.0); PLATELET COUNT (AUTO) 336 K/uL (150-450); RED BLOOD CELL COUNT(AUTO) 3.26 MIL/uL (4.5-6.0); WHITE BLOOD COUNT (AUTO) 7.7 K/uL (4.3-11.0)
--- NOTE | 2022-01-04 06:33 | NUR ---
END OF SHIFT, PATIENT SLEEPING AT THIS TIME AROUSES TO VERBAL STIMULI, CONTINUE ON SIMPLE MASK 8L, NO SOB/ACUTE DISTRESS DURING THE NIGHT, MAINTAINED O2 WNL, VITAL SINGS STABLE, AFEBRILE, CONT ON IVF ORDERED AND ANTIBIOTIC, CONTINUE NPO, WILL HAVE SWALLOW EVAL THIS MORNING, WELL WOUND CONSULT, NO INSULIN COVERAGE GIVEN THIS MORNING, BS 91 MG/DL, OTHERWISE NO SIGNIFICANT CHANGE IN CONDITION DURING THE NIGHT, BED LOCKED AND IN LOWEST POSITION, GOOD URINARY OUTPUT, ALL SAFETY PRECAUTIONS MAINTAINED, CALL LIGHT WITHIN REACH, WILL ENDORSE CONTINUITY OF CARE TO ONCOMING NURSE.
[2022-01-04 07:18] LABS: CALCIUM, SERUM 8.9 mg/dL (8.5-10.1); CARBON DIOXIDE 30 mmol/L (21-32); CHLORIDE 108 mmol/L (98-107); CREATININE 0.9 mg/dL (0.6-1.3); GLUCOSE 87 mg/dL (74-106); MAGNESIUM 1.3 mg/dL (1.8-2.4); PHOSPHORUS 1.9 mg/dL (2.5-4.9); POTASSIUM 3.4 mmol/L (3.5-5.1); SODIUM SERUM 145 mmol/L (136-145); UREA NITROGEN, BLOOD 25 mg/dL (7-18)
--- NOTE | 2022-01-04 07:20 | NUR ---
SENIOR WINDOWS ENGINEER OPENING NOTE: RECEIVED PATIENT IN BED, A/O X 1, RESPONSIVE TO NAME AND TOUCH. BREATHING EVEN AND UNLABORED. ON O2 @ 8L/MIN VIA SIMPLE MASK, NO S/S OF RESPIRATORY DISTRESS. COTTON BALL MACHINE TENDER READS NSR AT 85 BPM. IV ACCESS ON L FA #20G, INTACT AND PATENT. NS RUNNING AT 75 CC/HR. ON NPO WAITING FOR SWALLOW EVAL. NO FACIAL GRIMACING NOTED. NO ACUTE DISTRESS. MULTIPLE SKIN ISSUES NOTED. WAITING FOR WOUND CONSULT. ALL SAFETY MEASURES IN PLACE. BED IN LOWEST POSITION AND LOCKED. SIDE RAILS UP X3, CALL LIGHT WITH IN REACH, HOB ELEVATED AT 30 DEGREES. WILL TURN AND REPOSITION Q2H. WILL CONTINUE TO MONITOR PT. FOR ANY CHANGES.
[2022-01-04] MEDS: PANTOPRAZOLE 40 MG TABLET.DR PO SCH (07:30)
--- NOTE | 2022-01-04 07:39 | NUR ---
WOUND CARE CONSULT: PT SLEEPING SOUNDLY AT THIS TIME. REVIEWED CHART, NURSING DOCUMENTATION AND PHOTOS WHICH INDICATE LOWER EXTREMITY WOUNDS, RT PALM SKIN CONDITION AND SACRAL STAGE 4 ULCER, ALL P RESENT ON ADMISSION. DR SHEPARD AND DR MAYNARD CALLED FOR SURGICAL AND DPM CONSULT REQUESTS. PT IS ON SKIPPACK ISOFLEX LOW AIRLOSS BED. ALL SKIN PROTECTION MEASURES DISCUSSED WITH NURSING STAFF. MD IN AGREEMENT WITH PLAN OF CARE.
[2022-01-04 08:00] VITALS: BP 126/61
[2022-01-04] MEDS: ASPIRIN 81 MG TAB.CHEW PO SCH (09:00)
[2022-01-04] MEDS ORDERED: LISINOPRIL (20MG) 20 MG TABLET PO SCH (09:00)
[2022-01-04] MEDS: CARVEDILOL 6.25 MG TABLET PO SCH ×2 (09:00→21:00)
[2022-01-04] MEDS: ZINC SULFATE 220 MG CAPSULE PO SCH (09:00)
[2022-01-04] MEDS: ATORVASTATIN 10 MG TABLET PO SCH (09:00)
[2022-01-04] MEDS: NEUTRA PHOS 1 POWD.PACKET PO SCH ×2 (09:00→17:00)
[2022-01-04] MEDS: TAMSULOSIN 0.4 MG CAP.SR.24H PO SCH (09:00)
[2022-01-04] MEDS: AMLODIPINE BESYLATE 10 MG TABLET PO SCH (09:00)
[2022-01-04] MEDS: MEMANTINE HCL 5 MG TABLET PO SCH ×2 (09:00→21:00)
[2022-01-04] MEDS: Magnesium 1GM/D5W 100ML PREMIX 100 ML IV SCH ×2 (09:00→10:20)
[2022-01-04] MEDS: ASCORBIC ACID 500 MG TABLET PO SCH (09:00)
[2022-01-04] MEDS: hydrALAZINE HCL 25 MG TABLET PO SCH ×3 (09:00→17:00)
[2022-01-04] MEDS: CHOLECALCIFEROL (VITAMIN D 3) 400 UNIT TABLET PO SCH (09:00)
[2022-01-04] MEDS: MULTIPLE VIT (LYCOPENE/FA/MV,CA,IRON,MIN/LUT)1 TAB PO SCH (09:00)
[2022-01-04 09:24] LABS: THYROID STIMULATING HORMONE 0.737 uIU/mL (0.358-3.74)
[2022-01-04] MEDS: VANCOMYCIN 0.75 GM in IV D5W 250 ML IV SCH ×2 (09:58→20:56)
[2022-01-04] MEDS ORDERED: MEROPENEM 1 G in IV NS 0.9% 100 ML IV SCH (10:00)
[2022-01-04] MEDS: LISINOPRIL (20MG) 20 MG TABLET PO SCH (11:00)
[2022-01-04 11:59] LABS: BAND % (MANUAL) 8 % (0.0-5.0); NEUTROPHILS % (MANUAL) 79 (42-76)
[2022-01-04 12:00] VITALS: BP 126/55
[2022-01-04 12:00] LABS: BASOPHILS % (MANUAL) 0 % (0.0-2.0); EOSINOPHILS % (MANUAL) 0 % (0-4); LYMPHOCYTES % (MANUAL) 9 % (16-48); MONOCYTES % (MANUAL) 4 % (0-11.0)
[2022-01-04] MEDS: POTASSIUM CL. PREMIX PERIPHER. 50 ML IV SCH ×2 (12:03→13:43)
[2022-01-04] MEDS: DEXAMETHASONE SOD PHOSPHATE 10 MG/ML VIAL IV SCH (12:03)
[2022-01-04] MEDS: SOD FERRIC GLUC 125 MG in IV NS 0.9% 100 ML IV SCH (14:09)
--- NOTE | 2022-01-04 15:24 | NUR ---
RT Tx not given due to pending COVID 19 PCR test
[2022-01-04 16:00] VITALS: BP 131/59
[2022-01-04] MEDS: MEROPENEM 1 G in IV NS 0.9% 100 ML IV SCH (16:58)
--- NOTE | 2022-01-04 18:00 | NUR ---
PREPARED FOODS SUPERVISOR NOTE: ALL SCHEDULED PO MEDS HELD TODAY. PT. FAILED SWALLOW EVAL. DR. CHLOÉ DE LA O AWARE AND WANTS TO KEEP PT. NPO TILL ANOTHER EVAL IS DONE TOMORROW AM. PT. VS REMAINS STABLE TODAY. WILL CONTINUE TO MONITOR PT. FOR ANY CHANGES.
--- NOTE | 2022-01-04 19:20 | NUR ---
SCIENCE TEACHER CLOSING NOTE: PATIENT REMAINS IN BED, A/O X 1, RESPONSIVE TO NAME AND TOUCH. BREATHING EVEN AND UNLABORED. ON O2 @ 3L/MIN VIA NC, NO S/S OF RESPIRATORY DISTRESS. BILINGUAL NANNY READS NSR AT 91 BPM. IV ACCESS ON L FA #20G, INTACT AND PATENT. NS RUNNING AT 75 CC/HR. ON NPO STILL, WILL DO ANOTHER SWALLOW EVAL IN AM. NO FACIAL GRIMACING NOTED. NO ACUTE DISTRESS. MULTIPLE SKIN ISSUES NOTED. WAITING FOR WOUND TREATMENT ORDERS. WOUND CLEANED, DRIED AND DRESSED. ALL SAFETY MEASURES MAINTAINED. BED IN LOWEST POSITION AND LOCKED. SIDE RAILS UP X3, CALL LIGHT WITH IN REACH, HOB ELEVATED AT 30 DEGREES. TURNED AND REPOSITIONED Q2H. WILL ENDORSE CONTINUITY OF CARE TO CUSTOMER TRAINER RN.
[2022-01-04 20:00] VITALS: BP 156/78
[2022-01-04] MEDS: ENOXAPARIN SODIUM 40 MG/0.4 ML DISP.SYRIN SQ SCH (20:54)
[2022-01-04] MEDS: DONEPEZIL 5 MG TABLET PO SCH (21:22)
--- NOTE | 2022-01-04 21:23 | NUR ---
PO MEDICATIONS NOT ADMINISTERED DUE TO PATENT NPO STATUS.
[2022-01-05] VITALS: BP 132/72
[2022-01-05] MEDS: BLOOD SUGAR DIAGNOSTIC 1 EACH STRIP IN SCH ×4 (00:04→16:58)
[2022-01-05] MEDS: INSULIN REGULAR, HUMAN 100 UNIT/ML 3 ML VIAL SQ PRN ×4 (00:06→17:00)
[2022-01-05 04:00] VITALS: BP 156/92
[2022-01-05] MEDS: MEROPENEM 1 G in IV NS 0.9% 100 ML IV SCH ×2 (04:44→16:01)
--- NOTE | 2022-01-05 06:56 | NUR ---
END OF SHIFT, PATIENT AWAKE, ANSWER SIMPLE QUESTIONS, ON NC 3LPM, NO SOB/ACUTE DISTRESS DURING THE NIGHT, WITH OPTIMAL O2 SAT LEVEL, VITAL SINGS STABLE, AFEBRILE, CONT ON IVF ORDERED AND ANTIBIOTIC, CONTINUE NPO, WILL HAVE SWALLOW EVAL THIS MORNING AGAIN, HE FAILED SWALLOW EVAL YESTERDAY, NO INSULIN COVERAGE GIVEN THIS MORNING, BS 99 MG/DL, OTHERWISE NO SIGNIFICANT CHANGE IN CONDITION DURING THE NIGHT, PATIENT DRN/DNI PER DAUGHTER WILL BRING THE ADVANCE DIRECTIVES THIS MORNING, JAYNE NUNES NP CERAMIC MOLD DESIGNER AWARE, BED LOCKED AND IN LOWEST POSITION, ALL SAFETY PRECAUTIONS MAINTAINED, CALL LIGHT WITHIN REACH, WILL ENDORSE CONTINUITY OF CARE TO ONCOMING NURSE.
[2022-01-05 07:19] LABS: BASOPHILS % (AUTO) 0.1 % (0.0-2.0); HEMATOCRIT 25 % (39-51); HEMOGLOBIN 7.6 g/dL (13.5-17.5); LYMPHOCYTES # (AUTO) 0.6 K/uL (0.8-4.8); LYMPHOCYTES % (AUTO) 4.4 % (20.0-44.0); MEAN CORPUSCULAR HGB CONC 31 g/dl (31.0-36.0); MEAN CORPUSCULAR VOLUME 72 fL (80-96); MONOCYTES # (AUTO) 0.4 K/uL (0.1-1.30); MONOCYTES % (AUTO) 3.3 % (2.0-12.0); NEUTROPHILS # (AUTO) 11.8 K/uL (1.8-8.9); NEUTROPHILS % (AUTO) 92.2 % (43.0-81.0); PLATELET COUNT (AUTO) 337 K/uL (150-450); RED BLOOD CELL COUNT(AUTO) 3.39 MIL/uL (4.5-6.0); WHITE BLOOD COUNT (AUTO) 12.8 K/uL (4.3-11.0)
[2022-01-05 07:34] LABS: ALBUMIN 1.7 g/dL (3.4-5.0); BILIRUBIN,TOTAL 0.3 mg/dL (0.2-1.0); CALCIUM, SERUM 8.9 mg/dL (8.5-10.1); CREATININE 0.8 mg/dL (0.6-1.3); MAGNESIUM 1.8 mg/dL (1.8-2.4); PHOSPHORUS 2.1 mg/dL (2.5-4.9); POTASSIUM 3.7 mmol/L (3.5-5.1); TOTAL PROTEIN, SERUM 6.8 g/dL (6.4-8.2)
[2022-01-05] MEDS: ACETYLCYSTEINE 10% SOLN 400 MG/4 ML VIAL NEB SCH ×2 (07:35→15:30)
--- NOTE | 2022-01-05 07:35 | NUR ---
SOCIAL SECURITY ASSESSOR open NOTE: PATIENT REMAINS IN BED, A/O X 1, RESPONSIVE TO NAME AND TOUCH. BREATHING EVEN AND UNLABORED. ON O2 @ 3L/MIN VIA NC, NO S/S OF RESPIRATORY DISTRESS. BEEF LUGGER READS NSR AT 93 . IV ACCESS ON L FA #20G, INTACT AND PATENT. NS RUNNING AT 75 CC/HR. ON NPO STILL, WILL DO ANOTHER SWALLOW EVAL IN AM. NO FACIAL GRIMACING NOTED. NO ACUTE DISTRESS. MULTIPLE SKIN ISSUES NOTED. WILL PERFORM WOUND CLEANED, DRIED AND DRESSED. ALL SAFETY MEASURES MAINTAINED. BED IN LOWEST POSITION AND LOCKED. SIDE RAILS UP X3, CALL LIGHT WITH IN REACH, HOB ELEVATED AT 30 DEGREES. TURNED AND REPOSITIONED Q2H. WILL CINTUNUE FALLOW PLAN OF CARE
[2022-01-05] MEDS: PANTOPRAZOLE 40 MG TABLET.DR PO SCH (07:56)
[2022-01-05 08:00] VITALS: BP 141/66
[2022-01-05] MEDS: NEUTRA PHOS 1 POWD.PACKET PO SCH ×2 (08:00→15:05)
[2022-01-05] MEDS: DEXAMETHASONE SOD PHOSPHATE 10 MG/ML VIAL IV SCH (08:33)
[2022-01-05] MEDS: LISINOPRIL (20MG) 20 MG TABLET PO SCH (09:00)
[2022-01-05] MEDS: TAMSULOSIN 0.4 MG CAP.SR.24H PO SCH (09:00)
[2022-01-05] MEDS: AMLODIPINE BESYLATE 10 MG TABLET PO SCH (09:00)
[2022-01-05] MEDS ORDERED: FERROUS SULFATE (325 MG) 325 MG/TAB TABLET PO SCH (09:00)
[2022-01-05] MEDS: ASCORBIC ACID 500 MG TABLET PO SCH (09:00)
[2022-01-05] MEDS: hydrALAZINE HCL 25 MG TABLET PO SCH ×3 (09:00→17:03)
[2022-01-05] MEDS: CARVEDILOL 6.25 MG TABLET PO SCH ×2 (09:00→13:00)
[2022-01-05] MEDS: ZINC SULFATE 220 MG CAPSULE PO SCH (09:00)
[2022-01-05] MEDS: MULTIPLE VIT (LYCOPENE/FA/MV,CA,IRON,MIN/LUT)1 TAB PO SCH (09:00)
[2022-01-05] MEDS: MEMANTINE HCL 5 MG TABLET PO SCH ×2 (09:00→21:03)
[2022-01-05] MEDS: CHOLECALCIFEROL (VITAMIN D 3) 400 UNIT TABLET PO SCH (09:00)
[2022-01-05] MEDS: ASPIRIN 81 MG TAB.CHEW PO SCH (09:00)
[2022-01-05] MEDS: ATORVASTATIN 10 MG TABLET PO SCH (09:25)
[2022-01-05] MEDS: VANCOMYCIN 0.75 GM in IV D5W 250 ML IV SCH ×2 (09:43→21:03)
[2022-01-05 11:41] LABS: BAND % (MANUAL) 4 % (0.0-5.0); BASOPHILS % (MANUAL) 0 % (0.0-2.0); EOSINOPHILS % (MANUAL) 0 % (0-4); LYMPHOCYTES % (MANUAL) 5 % (16-48); MONOCYTES % (MANUAL) 3 % (0-11.0); NEUTROPHILS % (MANUAL) 88 (42-76)
[2022-01-05 13:17] VITALS: BP 154/75
[2022-01-05] MEDS: SOD FERRIC GLUC 125 MG in IV NS 0.9% 100 ML IV SCH (14:34)
[2022-01-05 16:00] VITALS: BP 153/77
--- NOTE | 2022-01-05 19:19 | NUR ---
MASTER IN CHANCERY CLOSING NOTE: PATIENT REMAINS IN BED, A/O X 1, RESPONSIVE TO NAME AND TOUCH. BREATHING EVEN AND UNLABORED. ON O2 @ 3L/MIN VIA NC, NO S/S OF RESPIRATORY DISTRESS. EXCHANGE CLERK READS NSR AT 97 . IV ACCESS ON L FA #20G, INTACT AND PATENT. CHANGED TO PUREE DIET NO FACIAL GRIMACING NOTED. NO ACUTE DISTRESS. MULTIPLE SKIN ISSUES NOTED. WILL PERFORM WOUND CLEANED, DRIED AND DRESSED. ALL SAFETY MEASURES MAINTAINED. BED IN LOWEST POSITION AND LOCKED. SIDE RAILS UP X3, CALL LIGHT WITH IN REACH, HOB ELEVATED AT 30 DEGREES. TURNED AND REPOSITIONED Q2H.
--- NOTE | 2022-01-05 19:30 | NUR ---
BUSINESS SUPPORT ADMINISTRATOR OPENING NOTE RECEIVED PATIENT IN BED, A/O X 1, RESPONSIVE TO NAME AND TOUCH. BREATHING EVEN AND UNLABORED. ON O2 @ 3L VIA NC, TOLERATING WELL. NO S/S OF RESPIRATORY DISTRESS. TELE MONITOR READS SR . IV ACCESS ON L FA #20G, INTACT AND PATENT. NO ACUTE DISTRESS. ALL SAFETY MEASURES IN PLACE. BED IN LOWEST POSITION AND LOCKED. SIDE RAILS UP X3, CALL LIGHT WITH IN REACH, HOB ELEVATED AT 30 DEGREES. WILL TURN AND REPOSITION Q2H. WILL CONTINUE TO MONITOR.
[2022-01-05 20:00] VITALS: BP 132/76
[2022-01-05] MEDS: DONEPEZIL 5 MG TABLET PO SCH (21:03)
[2022-01-05] MEDS: ENOXAPARIN SODIUM 40 MG/0.4 ML DISP.SYRIN SQ SCH (21:06)
[2022-01-06] VITALS: BP 150/78
[2022-01-06] MEDS: ACETYLCYSTEINE 10% SOLN 400 MG/4 ML VIAL NEB SCH ×3 (00:03→15:50)
[2022-01-06] MEDS: ALBUTEROL HALF STRENGTH 1.25 MG/3 ML VIAL.NEB NEB PRN ×3 (00:03→15:50)
[2022-01-06] MEDS: BLOOD SUGAR DIAGNOSTIC 1 EACH STRIP IN SCH ×4 (00:31→17:39)
[2022-01-06] MEDS: INSULIN REGULAR, HUMAN 100 UNIT/ML 3 ML VIAL SQ PRN ×4 (00:33→17:42)
[2022-01-06 04:00] VITALS: BP 160/75
[2022-01-06] MEDS: MEROPENEM 1 G in IV NS 0.9% 100 ML IV SCH ×2 (05:49→17:39)
--- NOTE | 2022-01-06 06:46 | NUR ---
REHABILITATION ATTENDANT CLOSING NOTE PATIENT IN BED, A/O X 1, RESPONSIVE TO NAME AND TOUCH. BREATHING EVEN AND UNLABORED. ON O2 @ 2L VIA NC, TOLERATING WELL. NO S/S OF RESPIRATORY DISTRESS. TELE MONITOR READS SR . IV ACCESS ON L FA #20G, INTACT AND PATENT. NO ACUTE DISTRESS. ALL DUE MEDS GIVEN. ALL SAFETY MEASURES IN PLACE. BED IN LOWEST POSITION AND LOCKED. SIDE RAILS UP X3, CALL LIGHT WITH IN REACH, HOB ELEVATED AT 30 DEGREES. PATIENT TURNED AND REPOSITION Q2H. WILL ENDORSE TO MORNING SHIFT.
[2022-01-06 07:06] LABS: BASOPHILS % (AUTO) 0.1 % (0.0-2.0); HEMATOCRIT 26 % (39-51); HEMOGLOBIN 7.9 g/dL (13.5-17.5); LYMPHOCYTES # (AUTO) 0.8 K/uL (0.8-4.8); LYMPHOCYTES % (AUTO) 6.3 % (20.0-44.0); MEAN CORPUSCULAR HGB CONC 31 g/dl (31.0-36.0); MEAN CORPUSCULAR VOLUME 73 fL (80-96); MONOCYTES # (AUTO) 0.6 K/uL (0.1-1.30); MONOCYTES % (AUTO) 5.1 % (2.0-12.0); NEUTROPHILS # (AUTO) 11.2 K/uL (1.8-8.9); NEUTROPHILS % (AUTO) 88.5 % (43.0-81.0); PLATELET COUNT (AUTO) 355 K/uL (150-450); RED BLOOD CELL COUNT(AUTO) 3.49 MIL/uL (4.5-6.0); WHITE BLOOD COUNT (AUTO) 12.7 K/uL (4.3-11.0)
--- NOTE | 2022-01-06 07:16 | NUR ---
PROFESSOR OF LITERACY OPENING NOTE RECEIVED PATIENT IN BED, A/O X 1, RESPONSIVE TO NAME AND TOUCH. BREATHING EVEN AND UNLABORED. ON O2 @ 2L VIA NC, TOLERATING WELL. NO S/S OF RESPIRATORY DISTRESS. TELE MONITOR . IV ACCESS ON L FA #20G, INTACT AND PATENT. NO ACUTE DISTRESS. ALL SAFETY MEASURES IN PLACE. BED IN LOWEST POSITION AND LOCKED. SIDE RAILS UP X3, CALL LIGHT WITH IN REACH, HOB ELEVATED AT 30 DEGREES.
[2022-01-06 07:31] LABS: BILIRUBIN,TOTAL 0.3 mg/dL (0.2-1.0); CALCIUM, SERUM 8.9 mg/dL (8.5-10.1); CREATININE 0.8 mg/dL (0.6-1.3); MAGNESIUM 1.7 mg/dL (1.8-2.4); POTASSIUM 3.1 mmol/L (3.5-5.1); TOTAL PROTEIN, SERUM 6.8 g/dL (6.4-8.2)
[2022-01-06 08:00] VITALS: BP 168/76
[2022-01-06] MEDS: IPRATROPIUM NEB FS 0.5 MG/2.5 ML AMPUL.NEB NEB PRN ×2 (08:03→15:50)
[2022-01-06] MEDS: MULTIPLE VIT (LYCOPENE/FA/MV,CA,IRON,MIN/LUT)1 TAB PO SCH (08:33)
[2022-01-06] MEDS: ZINC SULFATE 220 MG CAPSULE PO SCH (08:33)
[2022-01-06] MEDS: ASPIRIN 81 MG TAB.CHEW PO SCH (08:33)
[2022-01-06] MEDS: AMLODIPINE BESYLATE 10 MG TABLET PO SCH (08:34)
[2022-01-06] MEDS: ASCORBIC ACID 500 MG TABLET PO SCH (08:34)
[2022-01-06] MEDS: CARVEDILOL 6.25 MG TABLET PO SCH (08:34)
[2022-01-06] MEDS: hydrALAZINE HCL 25 MG TABLET PO SCH ×3 (08:34→17:39)
[2022-01-06] MEDS: LISINOPRIL (20MG) 20 MG TABLET PO SCH (08:34)
[2022-01-06] MEDS: PANTOPRAZOLE 40 MG TABLET.DR PO SCH (08:35)
[2022-01-06] MEDS: TAMSULOSIN 0.4 MG CAP.SR.24H PO SCH (08:35)
[2022-01-06] MEDS: CHOLECALCIFEROL (VITAMIN D 3) 400 UNIT TABLET PO SCH (08:35)
[2022-01-06] MEDS: VANCOMYCIN 0.75 GM in IV D5W 250 ML IV SCH (08:35)
[2022-01-06] MEDS: ATORVASTATIN 10 MG TABLET PO SCH (08:35)
[2022-01-06] MEDS: MEMANTINE HCL 5 MG TABLET PO SCH (08:35)
[2022-01-06 09:12] LABS: ALBUMIN 1.7 g/dL (3.4-5.0)
[2022-01-06] MEDS: AMMONIUM LACTATE 227 GM BOTTLE TP SCH ×2 (10:21→17:39)
[2022-01-06 10:22] LABS: BAND % (MANUAL) 5 % (0.0-5.0); BASOPHILS % (MANUAL) 0 % (0.0-2.0); EOSINOPHILS % (MANUAL) 0 % (0-4); LYMPHOCYTES % (MANUAL) 7 % (16-48); MONOCYTES % (MANUAL) 4 % (0-11.0); NEUTROPHILS % (MANUAL) 84 (42-76)
[2022-01-06] MEDS: APIXABAN 2.5 MG TABLET PO SCH ×2 (11:00→17:41)
[2022-01-06] MEDS: Magnesium 1GM/D5W 100ML PREMIX 100 ML IV SCH ×2 (11:44→13:05)
[2022-01-06] MEDS: POTASSIUM CHLORIDE 20 MEQ POWDER PACKET PO SCH ×2 (11:44→13:04)
[2022-01-06 12:00] VITALS: BP 142/68
--- NOTE | 2022-01-06 13:00 | NUR ---
RN NOTE PT PENDING 20G IV ACCESS FOR CTA. 3 ATTEMPTS FAILED CHARGE NURSE INFORMED NURSING VARNISH FILTERER. PENDING PLACEMENT
[2022-01-06] MEDS ORDERED: IV NS 0.9% 250 ML IV ONE (15:29)
[2022-01-06] MEDS ORDERED: IOHEXOL-350 100 ML VIAL IV ONE (15:29)
[2022-01-06] MEDS: SOD FERRIC GLUC 125 MG in IV NS 0.9% 100 ML IV SCH (15:29)
[2022-01-06] MEDS ORDERED: CT SWABBABLE VALVE TRANS SET 1 EA INFUS.SET MC ONE (15:29)
[2022-01-06 16:00] VITALS: BP 134/69
--- NOTE | 2022-01-06 16:32 | NUR ---
RN NOTE REPORT GIVEN TO HEMAL AUGUSTIN FROM [facility] [phone] IN ROOM 3A.
[2022-01-06 17:39] VITALS: BP 134/69
[2022-01-06] MEDS ORDERED: NEUTRA PHOS 1 POWD.PACKET PO ONE (18:30)
--- NOTE | 2022-01-06 19:00 | NUR ---
RN NOTE PATIENT PICKED UP BY EMT IN STABLE CONDITION
== END 2022-01-06 20:50 | DRG 871 ==
LOC: ER 18:26 → TELE1 20:52
PROVIDERS: ADMIT Nurse Practitioner Acute Care
PROC: 05H533Z Insertion of Infusion Device into Right Subclavian Vein, Percutaneous Approach (ICD-10-PCS; principal; 2022-01-06)
PROC: B546ZZA Ultrasonography of Right Subclavian Vein, Guidance (ICD-10-PCS; 2022-01-06)
DX: A41.9 Sepsis, unspecified organism (principal); J69.0 Pneumonitis due to inhalation of food and vomit; L89.154 Pressure ulcer of sacral region, stage 4; J96.01 Acute respiratory failure with hypoxia; E44.0 Moderate protein-calorie malnutrition; E87.2 Acidosis; N17.9 Acute kidney failure, unspecified; I82.511 Chronic embolism and thrombosis of right femoral vein; Z68.1 Body mass index [BMI] 19.9 or less, adult; I25.10 Atherosclerotic heart disease of native coronary artery without angina pectoris; D50.9 Iron deficiency anemia, unspecified; E83.42 Hypomagnesemia; E86.0 Dehydration; E88.09 Other disorders of plasma-protein metabolism, not elsewhere classified; G30.9 Alzheimer's disease, unspecified; F02.80 Dementia in other diseases classified elsewhere, unspecified severity, without behavioral disturbance, psychotic disturbance, mood disturbance, and anxiety; I11.0 Hypertensive heart disease with heart failure; K21.9 Gastro-esophageal reflux disease without esophagitis; Z86.73 Personal history of transient ischemic attack (TIA), and cerebral infarction without residual deficits; Z88.0 Allergy status to penicillin; N40.0 Benign prostatic hyperplasia without lower urinary tract symptoms; Z20.822 Contact with and (suspected) exposure to COVID-19; Z79.01 Long term (current) use of anticoagulants; E11.9 Type 2 diabetes mellitus without complications; I50.9 Heart failure, unspecified; E83.39 Other disorders of phosphorus metabolism; I27.20 Pulmonary hypertension, unspecified; E78.00 Pure hypercholesterolemia, unspecified
CPT/HCPCS: 36415; 71045-TC; 80048-TC; 80053-TC; 80076-TC; 80202-TC; 81001; 82728-TC; 82962-TC; 83540-TC; 83605-TC; 83735-TC; 83880; 84100-TC; 84439-TC; 84443-TC; 84484-TC; 85025-TC; 85730-TC; 87040-TC; 87081-TC; 87086-TC; 92526; 92611-TC; 93307-TC; 93970-TC; 94799-TC; 97112-TC; 97530-TC; A6403; C9803; G0378; J1100; J1650; J1815; J2185; J2916; J3370; J3475; J3480; J7030; J7050; J7060; Q9967; U0003